=== PATIENT | female | born 1970 | race Hispanic/Latino ===

== ENCOUNTER 2017-01-18 04:50 | Emergency (ER) | payer MEDICAID ==
[2017-01-18 05:21] VITALS: BMI 37.5
[2017-01-18 05:22] VITALS: BP 120/80; PULSE 92; RESP 20; O2SAT 100
[2017-01-18 05:37] VITALS: TEMP 98.1
--- NOTE | 2017-01-18 05:46 | ED PDOC ---
Arrival/HPI - General Chief Complaint: Shortness Of Breath Time Seen by Provider: 01/18/17 05:00 Historian: Patient - History of Present Illness Narrative History of Present Illness (Text): 01/18/17 05:40 Silvia Jennings is a 46 year old female, with a history of arthritis and anxiety, presents to the emergency department complaining of right posterior thoracic pain for past few hours. Patient states that she woke up from sleep with the symptoms and states that pain is worsened with deep inspirations.No sob .Thinks may be an anxiety attack. Denies fever, chills, headache, dizziness, nausea, vomiting, diarrhea, urinary symptoms, or any other complaints at this time. Time/Duration: 1-3 hours Symptom Onset: Sudden Symptom Course: Unchanged Severity Level: Mild Activities at Onset: Sleeping Context: Home Past Medical History - Provider Review Nursing Documentation Reviewed: Yes - Past History Past History: No Previous - Cardiac Hx Cardiac Disorders: No - Pulmonary Hx Respiratory Disorders: No - Neurological HX Cerebrovascular Accident: Yes (2011) - HEENT Hx HEENT Disorder: No - Renal Hx Renal Disorder: No - Endocrine/Metabolic Hx Endocrine Disorders: No - Hematological/Oncological Hx Blood Disorders: No - Integumentary Hx Dermatological Disorder: No - Musculoskeletal/Rheumatological Hx Arthritis: Yes - Gastrointestinal Hx Gastrointestinal Disorders: No - Genitourinary/Gynecological Hx Genitourinary Disorders: No - Psychiatric Hx Psychophysiologic Disorder: Yes Hx Anxiety: Yes Hx Depression: No Hx Emotional Abuse: No Hx Physical Abuse: No Hx Substance Use: No - Past Surgical History Past Surgical History: No Previous - Surgical History Other/Comment: lap band 2010 - Anesthesia Hx Anesthesia: Yes Hx Anesthesia Reactions: No Hx Malignant Hyperthermia: No - Suicidal Assessment Feels Threatened In Home Enviroment: No Family/Social History - Physician Review Nursing Documentation Reviewed: Yes Family/Social History: No Known Family HX Smoking Status: Never Smoked Hx Alcohol Use: No Hx Substance Use: No Hx Substance Use Treatment: No Allergies/Home Meds Allergies/Adverse Reactions: Allergies cat dander Allergy (Verified 01/18/17 05:24) RASH latex Allergy (Verified 01/18/17 05:24) RASH sesame seed Allergy (Verified 01/18/17 05:24) RASH Review of Systems - Physician Review All systems were reviewed & negative as marked: Yes - Review of Systems Constitutional: Normal. absent: Fatigue, Fevers Respiratory: Normal. absent: SOB, Cough, Sputum Cardiovascular: Normal. absent: Chest Pain Gastrointestinal: Normal. absent: Abdominal Pain, Diarrhea, Nausea, Vomiting Genitourinary Female: Normal. absent: Dysuria Musculoskeletal: Other (right posterior thoracic pain ) Neurological: Normal. absent: Headache, Dizziness Psychiatric: Normal Physical Exam Vital Signs Reviewed: Yes Vital Signs Temp Pulse Resp BP Pulse Ox 01/18/17 05:48 20 100 01/18/17 05:21 92 H 20 120/80 100 01/18/17 05:06 98.1 F 77 24 120/80 98 Temperature: Afebrile Blood Pressure: Normal Pulse: Regular Respiratory Rate: Normal Appearance: Positive for: Well-Appearing, Non-Toxic, Comfortable Pain Distress: None Mental Status: Positive for: Alert and Oriented X 3 - Systems Exam Head: Present: Atraumatic, Normocephalic Pupils: Present: PERRL Extroacular Muscles: Present: EOMI Conjunctiva: Present: Normal Respiratory/Chest: Present: Clear to Auscultation, Good Air Exchange. No: Respiratory Distress, Accessory Muscle Use Cardiovascular: Present: Regular Rate and Rhythm, Normal S1, S2. No: Murmurs Abdomen: Present: Normal Bowel Sounds. No: Tenderness, Distention, Peritoneal Signs Upper Extremity: Present: Normal Inspection. No: Cyanosis, Edema Lower Extremity: Present: Normal Inspection. No: Edema Neurological: Present: GCS=15, CN II-XII Intact, Speech Normal Skin: Present: Warm, Dry, Normal Color. No: Rashes Psychiatric: Present: Alert, Oriented x 3, Normal Insight, Normal Concentration Medical Decision Making ED Course and Treatment: 01/18/17 05:48 Impression: A 46 year old female who presents to the emergency department complaining of right posterior thoracic pain for past few hours. Plan: -- EKG -- Labs, cardiac enzymes -- Chest X-ray -- HCG -- Urinalysis -- Reassess and disposition Progress Notes: 01/18/17 06:02 EKG interpreted by me: ITA @ 81. Non specific ST/T wave changes. - Lab Interpretations Lab Results: 01/18/17 05:45 01/18/17 05:45 Lab Results 01/18/17 05:45: WBC 11.4 H, RBC 4.02, Hgb 11.3 L, Hct 33.6 L, MCV 83.6, MCH 28.1 , MCHC 33.6, RDW 13.8, Plt Count 276, MPV 10.5, PT 10.9, INR 1.01, APTT 28.6, D- Dimer, Quantitative 0.39, Sodium 139, Potassium 3.9, Chloride 102, Carbon Dioxide 24, Anion Gap 17, BUN 14, Creatinine 0.6, Est GFR ( Amer) > 60, Est GFR (Non-Af Amer) > 60, Random Glucose 97, Calcium 9.1, Total Bilirubin 0.7 , AST 21, ALT 26, Alkaline Phosphatase 71, Lactate Dehydrogenase 399, Total Creatine Kinase 61, Troponin I < 0.01, Total Protein 8.1, Albumin 4.0, Globulin 4.1, Albumin/Globulin Ratio 1.0 L, Urine Color Yellow, Urine Appearance Clear, Urine pH 6.0, Ur Specific [place] >= 1.030, Urine Protein Negative, Urine Glucose (UA) Negative, Urine Ketones Negative, Urine Blood Negative, Urine Nitrate Negative, Urine Bilirubin Negative, Urine Urobilinogen 0.2, Ur Leukocyte Esterase Negative, Urine HCG, Qual Negative - RAD Interpretation Narrative RAD Interpretations (Text): 01/18/17 06:45 CXR- no acute process Radiology Orders: 01/18/17 05:25 CHEST PORTABLE [RAD] Stat Labor Service Representative: ED Physician - Medication Orders Current Medication Orders: Cyclobenzaprine HCl (Flexeril) 10 mg PO ONCE ONE Stop: 01/18/17 07:02 Discontinued Medications Ketorolac Tromethamine (Toradol) 30 mg IVP ONCE ONE Stop: 01/18/17 06:44 Last Admin: 01/18/17 06:54 Dose: 30 MG IVP Administration Document 01/18/17 06:54 JEREMY (Rec: 01/18/17 06:54 JEREMY [facility] [id number]) Charges for Administration # of IVP Administrations 1 - Scribe Statement The provider has reviewed the documentation as recorded by the Toby Beyer Provider Attestation: All medical record entries made by the Andreeaibcirilo were at my direction and personally dictated by me. I have reviewed the chart and agree that the record accurately reflects my personal performance of the history, physical exam, medical decision making, and the department course for this patient. I have also personally directed, reviewed, and agree with the discharge instructions and disposition. Disposition/Present on Arrival - Present on Arrival Any Indicators Present on Arrival: No History of DVT/PE: No History of Uncontrolled Diabetes: No Urinary Catheter: No History of Decub. Ulcer: No History Surgical Site Infection Following: None - Disposition Have Diagnosis and Disposition been Completed?: Yes Diagnosis: Musculoskeletal pain, Muscle spasm Disposition: HOME/ ROUTINE Disposition Time: 07:06 Patient Plan: Discharge Condition: GOOD Discharge Instructions (ExitCare): Musculoskeletal Pain (ED), Muscle Spasm (ED) Additional Instructions: Take meds as prescribed/follow up with your doctor this week/any recurrent worsening symptoms return to the emergency room Prescriptions: Cyclobenzaprine [Cyclobenzaprine HCl] 10 mg PO TID PRN #15 tab PRN Reason: Muscle Spasm Naproxen [Naprosyn] 500 mg PO BID PRN #14 tab PRN Reason: Pain
[2017-01-18 06:19] LABS: HEMATOCRIT 33.6 % (36.0-48.0); INR 1.01 (0.93-1.08); MEAN CELL VOLUME 83.6 fL (80.0-105.0); MEAN CORPUSCULAR HEMOGLOBIN 28.1 pg (25.0-35.0); MEAN CORPUSCULAR HGB CONC 33.6 g/dl (31.0-37.0); MEAN PLATELET VOLUME 10.5 fl (7.0-11.0); PARTIAL THROMBOPLASTIN TIME 28.6 Seconds (23.7-30.8); RED CELL DISTRIBUTION WIDTH 13.8 % (11.5-14.5); WHITE BLOOD COUNT 11.4 10^3/ul (4.5-11.0)
[2017-01-18 06:20] LABS: URINE BILIRUBIN NEGATIVE (NEGATIVE); URINE BLOOD NEGATIVE (NEGATIVE); URINE GLUCOSE (UA) NEGATIVE (NEGATIVE); URINE KETONE NEGATIVE (NEGATIVE); URINE LEUKOCYTE ESTERASE NEGATIVE Leu/uL (NEGATIVE); URINE PROTEIN NEGATIVE mg/dL (<30 mg/dL); URINE UROBILINOGEN 0.2 E.U./dL (<1 E.U./dL)
[2017-01-18 06:25] LABS: URINE APPEARANCE CLEAR (CLEAR); URINE COLOR YELLOW (YELLOW)
[2017-01-18 06:31] LABS: ALKALINE PHOSPHATASE 71 U/L (38-133); ALT/SGPT 26 U/L (7-56); AST/SGOT 21 U/L (15-39); BILIRUBIN,TOTAL 0.7 mg/dL (0.2-1.3); BLOOD UREA NITROGEN 14 mg/dL (7-21); CALCIUM 9.1 mg/dL (8.4-10.5); CARBON DIOXIDE 24 mmol/L (21-33); CHLORIDE 102 mmol/L (98-107); GFR AFRICAN-AMERICAN > 60; GLUCOSE,RANDOM 97 mg/dL (70-110); POTASSIUM 3.9 mmol/L (3.6-5.0); SODIUM 139 mmol/L (132-148); TOTAL PROTEIN 8.1 g/dL (5.8-8.3)
[2017-01-18 06:43] LABS: TROPONIN I < 0.01 ng/mL
--- NOTE | 2017-01-18 09:04 | RAD ---
HISTORY: Chest pain COMPARISON: 10/08/2012 FINDINGS: LUNGS: The lungs are clear. PLEURA: No significant pleural effusion identified, no pneumothorax apparent. CARDIOVASCULAR: Normal. OSSEOUS STRUCTURES: No significant abnormalities. VISUALIZED UPPER ABDOMEN: Normal. OTHER FINDINGS: None. IMPRESSION: No active pulmonary disease.
--- NOTE | 2017-01-18 09:38 | CARD ---
APPROVED REPORT EKG Measurement Heart [id number] <Conclusion> Normal sinus rhythm Small q waves 2,3,F PWNL
== END 2017-01-18 07:15 | disposition home or self-care (01) ==
LOC: ED 04:50
DX: M79.1 Myalgia (principal)
CPT/HCPCS: 71010; 80053; 81003; 82550; 83615; 84484; 84703; 85027; 85378; 85610; 85730; 93005; 96374; 99284; J1885

== ENCOUNTER 2017-03-14 03:49 | Emergency (ER) | payer MEDICAID ==
[2017-03-14 03:59] VITALS: BP 132/94; PULSE 97; RESP 18; TEMP 99.4; O2SAT 97
[2017-03-14 04:00] VITALS: BMI 40.7
[2017-03-14] MEDS ORDERED: Albuterol 0.083% Inhal Sol (2.5 mg/3 mL) UD IH STA (04:23)
--- NOTE | 2017-03-14 04:28 | ED PDOC ---
Arrival/HPI <ToanChi - Last Filed: 03/14/17 06:23> - General Historian: Patient <Tamela Mcdaniel - Last Filed: 03/14/17 06:27> - General Chief Complaint: Cough, Cold, Congestion Time Seen by Provider: 03/14/17 04:00 - History of Present Illness Narrative History of Present Illness (Text): 03/14/17 04:24 46 y/o F w/ PMHx of bronchitis and PNA presents to the ED w/ c/o chest congestion and myalgias x1wk. Pt states she saw her PMD and was prescribed Azithromycin. Pt is on day 4 of 5 and reports worsening cough and myalgias. Pt admits to F/C, lightheadedness, cough productive of thick green/yellow sputum. Pt admits to worsening SOB w/ exertion and orthopnea as well as CP w/ inhalation. Pt had 1 episode of vomiting this evening after coughing fit. Pt denies nausea, D/C, abd pain. Pt has not taken any meds except the abx prescribed. (Tamela Mcdaniel) Past Medical History - Provider Review Nursing Documentation Reviewed: Yes - Past History Past History: No Previous - Infectious Disease Hx of Infectious Diseases: None - Reproductive Menopause: No - Cardiac Hx Cardiac Disorders: No - Pulmonary Hx Respiratory Disorders: No - Neurological HX Cerebrovascular Accident: Yes (2011) - HEENT Hx HEENT Disorder: No - Renal Hx Renal Disorder: No - Endocrine/Metabolic Hx Endocrine Disorders: No - Hematological/Oncological Hx Blood Disorders: No - Integumentary Hx Dermatological Disorder: No - Musculoskeletal/Rheumatological Hx Arthritis: Yes - Gastrointestinal Hx Gastrointestinal Disorders: No - Genitourinary/Gynecological Hx Genitourinary Disorders: No - Psychiatric Hx Psychophysiologic Disorder: Yes Hx Anxiety: Yes Hx Depression: No Hx Emotional Abuse: No Hx Physical Abuse: No Hx Substance Use: No - Past Surgical History Past Surgical History: No Previous - Surgical History Other/Comment: lap band 2009 - Anesthesia Hx Anesthesia: Yes Hx Anesthesia Reactions: No Hx Malignant Hyperthermia: No - Suicidal Assessment Feels Threatened In Home Enviroment: No <Tamela Mcdaniel - Last Filed: 03/14/17 06:27> Family/Social History - Physician Review Nursing Documentation Reviewed: Yes Family/Social History: No Known Family HX Smoking Status: Never Smoked Hx Alcohol Use: No Hx Substance Use: No Hx Substance Use Treatment: No <Brandy Mcdanielanda - Last Filed: 03/14/17 06:27> Allergies/Home Meds <Chi Joya - Last Filed: 03/14/17 06:23> <Tamela Mcdaniel - Last Filed: 03/14/17 06:27> Allergies/Adverse Reactions: Allergies cat dander Allergy (Verified 01/18/17 05:24) RASH latex Allergy (Verified 01/18/17 05:24) RASH sesame seed Allergy (Verified 01/18/17 05:24) RASH Review of Systems - Physician Review All systems were reviewed & negative as marked: Yes - Review of Systems ENT: absent: Rhinorrhea Cardiovascular: absent: Edema <Tamela Mcdaniel - Last Filed: 03/14/17 06:27> Physical Exam Vital Signs Reviewed: Yes Temperature: Afebrile Blood Pressure: Normal Pulse: Regular Respiratory Rate: Normal Appearance: Positive for: Comfortable, Ill-Appearing Pain Distress: None Mental Status: Positive for: Alert and Oriented X 3 - Systems Exam Head: Present: Atraumatic, Normocephalic Pupils: Present: PERRL Extroacular Muscles: Present: EOMI Conjunctiva: Present: Normal Mouth: Present: Moist Mucous Membranes Pharnyx: Present: ERYTHEMA Nose (External): Present: Atraumatic Nose (Internal): Present: Boggy Respiratory/Chest: Present: Good Air Exchange, Wheezes (L basilar). No: Respiratory Distress, Accessory Muscle Use Cardiovascular: Present: Normal S1, S2, Tachycardic. No: Murmurs Abdomen: No: Tenderness, Distention Upper Extremity: Present: Normal Inspection Lower Extremity: Present: Normal Inspection Neurological: Present: GCS=15, Speech Normal Skin: Present: Warm, Dry, Normal Color Lymphatic: Present: Cervical Adenopathy (anterior shotty lymphadenopathy) Psychiatric: Present: Alert, Oriented x 3, Normal Affect, Normal Mood <Tamela Mcdaniel - Last Filed: 03/14/17 06:27> Vital Signs Temp Pulse Resp BP Pulse Ox 03/14/17 03:49 99.4 F 97 H 18 132/94 H 97 Medical Decision Making <Chi Joya - Last Filed: 03/14/17 06:23> <Tamela Mcdaniel - Last Filed: 03/14/17 06:27> ED Course and Treatment: Pt seen and evaluated with resident. Pt, whose pasrt medical histroy includes bronchitis, presented for chest congestino with associated productive cough, dyspnea on exertion, and diffuse body aches for 1 week. Aware and agree with HPI , clinical findings, plan, and management. Plan: -- EKG -- Chest X-ray -- Albuterol -- Reassess and disposition (Chi Joya) 03/14/17 04:31 46 y/o F w/ SOB and productive cough - CXR - Albuterol - reassess and dispo 03/14/17 06:15 symptoms improved after nebulizer Tx. (Tamela Mcdaniel) - RAD Interpretation Narrative RAD Interpretations (Text): 03/14/17 06:25 CXR: no active disease (Tamela Mcdaniel) Radiology Orders: 03/14/17 04:23 CHEST TWO VIEWS (PA/LAT) [RAD] Stat - Medication Orders Current Medication Orders: Discontinued Medications Albuterol Sulfate (Albuterol 0.083% Inhal Uma (2.5 Mg/3 Ml) Ud) 2.5 mg IH STAT STA Stop: 03/14/17 04:24 Last Admin: 03/14/17 04:33 Dose: 2.5 mg - PA / STRAIGHTENING MACHINE FEEDER / Resident Statement TOMASA has reviewed & agrees with the documentation as recorded. TOMASA has examined the patient and agrees with the treatment plan. <Chi Joya - Last Filed: 03/14/17 06:23> Disposition/Present on Arrival <Chi Joya - Last Filed: 03/14/17 06:23> - Present on Arrival Any Indicators Present on Arrival: No History of DVT/PE: No History of Uncontrolled Diabetes: No Urinary Catheter: No History of Decub. Ulcer: No History Surgical Site Infection Following: None - Disposition Have Diagnosis and Disposition been Completed?: Yes Disposition Time: 06:25 <Tamela Mcdaniel - Last Filed: 03/14/17 06:27> - Disposition Diagnosis: Bronchitis Disposition: HOME/ ROUTINE Condition: GOOD Discharge Instructions (ExitCare): Acute Bronchitis (ED) Additional Instructions: follow up with primary physician within 1 week return if symptoms do not improve or worsen take all medications as prescribed Prescriptions: Albuterol HFA [Ventolin HFA 90 mcg/actuation (8 g)] 1 puff IH Q4 #1 inhaler levoFLOXacin [Levaquin] 500 mg PO DAILY #7 tab
--- NOTE | 2017-03-14 09:06 | RAD ---
HISTORY: Shortness of breath, productive cough COMPARISON: No prior. TECHNIQUE: Chest PA and lateral FINDINGS: LUNGS: The lungs are clear. PLEURA: No significant pleural effusion identified. No pneumothorax apparent. CARDIOVASCULAR: Normal. OSSEOUS STRUCTURES: No significant abnormalities. VISUALIZED UPPER ABDOMEN: Normal. OTHER FINDINGS: None. IMPRESSION: No active pulmonary disease.
--- NOTE | 2017-03-14 14:53 | CARD ---
APPROVED REPORT EKG Measurement Heart [id number] <Conclusion> Normal sinus rhythm Small q waves 2,3,F, possible IMI, age unknown
== END 2017-03-14 06:51 | disposition home or self-care (01) ==
LOC: ED 03:49
DX: J20.9 Acute bronchitis, unspecified (principal)

== ENCOUNTER 2018-04-07 18:22 | Emergency (ER) | payer MEDICAID ==
[2018-04-07 18:53] VITALS: BP 129/86; TEMP 98.8; BMI 43.4
[2018-04-07] MEDS ORDERED: Lidocaine 1%/Epinephrine 1:100000 30 ml vial IJ ONE (19:17)
[2018-04-07] MEDS ORDERED: LIDOCAIN/EPI 1-0.001% 10ML INJ SOL IJ STA (19:17)
[2018-04-07] MEDS ORDERED: LIDOCAIN/EPI 1-0.001% 10ML INJ SOL IJ ONE (19:19)
--- NOTE | 2018-04-07 19:50 | ED PDOC ---
Arrival/HPI - General Chief Complaint: Abnormal Labs Time Seen by Provider: 04/07/18 19:13 Historian: Patient - History of Present Illness Narrative History of Present Illness (Text): 04/07/18 19:40 47 year old female, with no significant PMH, who presents to the emergency department complaining of painful lump in back of neck since 4 days that has been increasing in size. Patient denies fever, trauma, neurological symptoms, abdominal pain, nausea, vomiting, diarrhea, chest pain, shortness of breath or other complaints. Time/Duration: < week Symptom Onset: Gradual Symptom Course: Worsening Past Medical History - Provider Review Nursing Documentation Reviewed: Yes - Past History Past History: No Previous - Infectious Disease Hx of Infectious Diseases: None - Cardiac Hx Cardiac Disorders: No - Pulmonary Hx Respiratory Disorders: No - Neurological HX Cerebrovascular Accident: Yes (2011) - HEENT Hx HEENT Disorder: No - Renal Hx Renal Disorder: No - Endocrine/Metabolic Hx Endocrine Disorders: No - Hematological/Oncological Hx Blood Disorders: No - Integumentary Hx Dermatological Disorder: No - Musculoskeletal/Rheumatological Hx Arthritis: Yes - Gastrointestinal Hx Gastrointestinal Disorders: No - Genitourinary/Gynecological Hx Genitourinary Disorders: No - Psychiatric Hx Psychophysiologic Disorder: Yes Hx Anxiety: Yes Hx Depression: No Hx Emotional Abuse: No Hx Physical Abuse: No Hx Substance Use: No - Past Surgical History Past Surgical History: No Previous - Surgical History Other/Comment: lap band 2010 - Anesthesia Hx Anesthesia: Yes Hx Anesthesia Reactions: No Hx Malignant Hyperthermia: No - Suicidal Assessment Feels Threatened In Home Enviroment: No Family/Social History - Physician Review Nursing Documentation Reviewed: Yes Family/Social History: Unknown Family HX Smoking Status: Never Smoked Hx Alcohol Use: No Hx Substance Use: No Hx Substance Use Treatment: No Allergies/Home Meds Allergies/Adverse Reactions: Allergies cat dander Allergy (Verified 01/18/17 05:24) RASH latex Allergy (Verified 01/18/17 05:24) RASH sesame seed Allergy (Verified 01/18/17 05:24) RASH Review of Systems - Review of Systems Constitutional: absent: Fevers Respiratory: absent: SOB Cardiovascular: absent: Chest Pain Gastrointestinal: absent: Abdominal Pain, Vomiting Genitourinary Female: absent: Dysuria Musculoskeletal: absent: Back Pain Skin: Abscess (back of neck ) Neurological: absent: Headache Endocrine: absent: Diaphoresis Physical Exam Vital Signs Reviewed: Yes Vital Signs Temp Pulse Resp BP Pulse Ox 04/07/18 21:12 82 16 99 04/07/18 18:52 98.8 F 92 H 18 129/86 100 Temperature: Afebrile Blood Pressure: Normal Pulse: Tachycardic Respiratory Rate: Normal Appearance: Positive for: Well-Appearing, Non-Toxic, Comfortable Pain Distress: None Mental Status: Positive for: Alert and Oriented X 3 - Systems Exam Head: Present: Atraumatic, Normocephalic Pupils: Present: PERRL Extroacular Muscles: Present: EOMI Conjunctiva: Present: Normal Neck: Present: Normal Range of Motion. No: Paraspinal Tenderness, Lymphadenopathy Respiratory/Chest: Present: Clear to Auscultation, Good Air Exchange. No: Respiratory Distress, Accessory Muscle Use, Wheezes, Decreased Breath Sounds, Rales, Rhonchi Cardiovascular: Present: Regular Rate and Rhythm, Normal S1, S2. No: Murmurs Abdomen: Present: Normal Bowel Sounds. No: Tenderness, Distention, Peritoneal Signs, Rebound, Guarding Neurological: Present: GCS=15, CN II-XII Intact, Speech Normal Skin: Present: Warm, Dry, Normal Color, Abscess (on the nape of neck has a 2x2 cm fluctuant painful area to midline posterior below occipital that is tender to palpation ). No: Rashes Psychiatric: Present: Alert, Oriented x 3, Normal Insight, Normal Concentration Medical Decision Making ED Course and Treatment: 04/07/18 Impression: 47 year old female, who on the nape of neck has a 2x2 cm fluctuant painful area to midline posterior below occipital that is tender to palpation. Differential Diagnosis included but are not limited to: skin abscess Plan: -- Doryx and Lidocaine and epinephrine -- Reassess and disposition Progress Notes: Procedure: Incision & Drainage Performed by the emergency provider Gunjan Hetlon Indication: Abscess Location: nape of neck Preparation: The area was prepped and draped in the usual sterile fashion and was cleansed. Local infiltration of Lidocaine with Epinephrine was used for anesthesia. Procedure: The most fluctuant portion of the abscess was incised with a #11 scalpel. Approximately 4 cc of purulent was obtained. The abscess was packed with sterile gauze and dressing was placed. Post-Procedure: On exam the abscess is notably less fluctuant. The patient tolerated the procedure well, and there were no complications. Cultured: YES Patient was instructed to return in 2 days for packing and removal. - Medication Orders Current Medication Orders: Discontinued Medications Doxycycline Hyclate (Doryx) 100 mg PO STAT STA PRN Reason: Protocol Stop: 04/07/18 19:37 Last Admin: 04/07/18 20:01 Dose: 100 mg Disposition/Present on Arrival - Present on Arrival Any Indicators Present on Arrival: No History of DVT/PE: No History of Uncontrolled Diabetes: No Urinary Catheter: No History of Decub. Ulcer: No History Surgical Site Infection Following: None - Disposition Have Diagnosis and Disposition been Completed?: Yes Diagnosis: Skin abscess Disposition: HOME/ ROUTINE Disposition Time: 00:12 Patient Plan: Discharge Condition: GOOD Discharge Instructions (ExitCare): Skin Abscess Print Language: SRI LANKAN Additional Instructions: take abiotics as prescribed,return to ED in 2 days for packing removal,wound check Prescriptions: Doxycycline Hyclate 100 mg PO BID #10 capsule oxyCODONE/Acetaminophen [Percocet 5/325 mg Tab] 1 ea PO TID PRN #6 tab PRN Reason: Pain, Mild (1-3) Referrals: [facility] [place] [Outside] - Follow up with primary Forms: [employer] (French)
[2018-04-07 21:13] VITALS: PULSE 82; RESP 16; O2SAT 99
== END 2018-04-07 21:12 | disposition home or self-care (01) ==
LOC: ED 18:22
DX: L02.11 Cutaneous abscess of neck (principal)

== ENCOUNTER 2018-04-09 11:47 | Emergency (ER) | payer MEDICAID ==
[2018-04-09 11:48] VITALS: BMI 43.4
[2018-04-09 12:01] VITALS: RESP 18; TEMP 98.5
[2018-04-09 12:53] VITALS: BP 126/78; PULSE 68; O2SAT 98
--- NOTE | 2018-04-16 00:38 | ED PDOC ---
Arrival/HPI - General Chief Complaint: Wound Check Time Seen by Provider: 04/09/18 11:49 - History of Present Illness Narrative History of Present Illness (Text): 04/16/18 00:37 47 yo female, presents for eval for neck abscess packing removal. i and d 2 days ago. symptoms improving. on antibiotics Past Medical History - Past History Past History: No Previous - Infectious Disease Hx of Infectious Diseases: None - Reproductive Menopause: No - Cardiac Hx Cardiac Disorders: No - Pulmonary Hx Respiratory Disorders: No - Neurological HX Cerebrovascular Accident: Yes (2011) - HEENT Hx HEENT Disorder: No - Renal Hx Renal Disorder: No - Endocrine/Metabolic Hx Endocrine Disorders: No - Hematological/Oncological Hx Blood Disorders: No - Integumentary Hx Dermatological Disorder: No - Musculoskeletal/Rheumatological Hx Arthritis: Yes - Gastrointestinal Hx Gastrointestinal Disorders: No - Genitourinary/Gynecological Hx Genitourinary Disorders: No - Psychiatric Hx Psychophysiologic Disorder: Yes Hx Anxiety: Yes Hx Depression: No Hx Emotional Abuse: No Hx Physical Abuse: No Hx Substance Use: No - Past Surgical History Past Surgical History: No Previous - Surgical History Other/Comment: lap band 2010 - Anesthesia Hx Anesthesia: Yes Hx Anesthesia Reactions: No Hx Malignant Hyperthermia: No - Suicidal Assessment Feels Threatened In Home Enviroment: No Family/Social History - Physician Review Nursing Documentation Reviewed: Yes Family/Social History: Unknown Family HX Smoking Status: Never Smoked Hx Alcohol Use: No Hx Substance Use: No Hx Substance Use Treatment: No Allergies/Home Meds Allergies/Adverse Reactions: Allergies cat dander Allergy (Verified 04/09/18 12:01) RASH latex Allergy (Verified 04/09/18 12:01) RASH sesame seed Allergy (Verified 04/09/18 12:01) RASH Review of Systems - Review of Systems Constitutional: Normal Eyes: Normal ENT: Normal Respiratory: Normal Cardiovascular: Normal Gastrointestinal: Normal Genitourinary Female: Normal Musculoskeletal: Normal Skin: Normal Neurological: Normal Endocrine: Normal Hemo/Lymphatic: Normal Psychiatric: Normal Physical Exam Vital Signs Temp Pulse Resp BP Pulse Ox 04/09/18 12:52 68 18 126/78 98 04/09/18 11:57 98.5 F 84 18 114/67 97 Temperature: Afebrile Blood Pressure: Normal Pulse: Regular Respiratory Rate: Normal Appearance: Positive for: Well-Appearing, Non-Toxic, Comfortable Pain Distress: None Mental Status: Positive for: Alert and Oriented X 3 - Systems Exam Head: Present: Atraumatic, Normocephalic Pupils: Present: PERRL Extroacular Muscles: Present: EOMI Conjunctiva: Present: Normal Mouth: Present: Moist Mucous Membranes Neck: Present: Normal Range of Motion, Other (postterior neck abscess minimal induration no erythema, no purulent dc) Respiratory/Chest: Present: Clear to Auscultation, Good Air Exchange. No: Respiratory Distress, Accessory Muscle Use Cardiovascular: Present: Regular Rate and Rhythm, Normal S1, S2. No: Murmurs Abdomen: No: Tenderness, Distention, Peritoneal Signs Back: Present: Normal Inspection Upper Extremity: Present: Normal Inspection. No: Cyanosis, Edema Lower Extremity: Present: Normal Inspection. No: Edema Neurological: Present: GCS=15, CN II-XII Intact, Speech Normal Skin: Present: Warm, Dry, Normal Color. No: Rashes Psychiatric: Present: Alert, Oriented x 3, Normal Insight, Normal Concentration Medical Decision Making ED Course and Treatment: 04/16/18 00:38 case seen with er resident. irrigated and packing removed. no further drainage. Disposition/Present on Arrival - Present on Arrival Any Indicators Present on Arrival: No History of DVT/PE: No History of Uncontrolled Diabetes: No Urinary Catheter: No History of Decub. Ulcer: No History Surgical Site Infection Following: None - Disposition Have Diagnosis and Disposition been Completed?: Yes Diagnosis: Visit for wound check Disposition: HOME/ ROUTINE Disposition Time: 12:00 Condition: STABLE Additional Instructions: Please follow up with PMD (Dr. Nicholsno) within 1 week for re-check of site. Please finish complete course of antibiotic. After resuming normal bathing, keep abscess site dry (pat dry with towel). CY DUNCAN, thank you for letting us take care of you today. Your provider was Tenzin Garcia DO and you were treated for WOUND CHECK OF NECK. The emergency medical care you received today was directed at your acute symptoms. If you were prescribed any medication, please fill it and take as directed. It may take several days for your symptoms to resolve. Return to the Emergency Department if your symptoms worsen, do not improve, or if you have any other problems. Please contact your doctor or call one of the physicians/clinics you have been referred to that are listed on the Patient Visit Information form that is included in your discharge packet. Bring any paperwork you were given at discharge with you along with any medications you are taking to your follow up visit. Our treatment cannot replace ongoing medical care by a primary care provider outside of the emergency department. Thank you for allowing the [facility] team to be part of your care today. If you had an X-Ray or CT scan: A Radiologist will review the ED reading if any change in treatment is needed we will contact you. If you had a blood, urine, or wound culture: It will take several days for the results, if any change in treatment is needed we will contact you. If you had an STI test: It will take 48 hours for the results. Please call after 1 week if you have not heard back. Referrals: Nory Nicholson V, DO [Family Provider] - Follow up with primary Forms: [facility] (Tajik)
== END 2018-04-09 12:52 | disposition home or self-care (01) ==
LOC: ED 11:47
DX: Z48.89 Encounter for other specified surgical aftercare (principal)

== ENCOUNTER 2018-11-14 20:09 | Emergency (ER) | payer MEDICAID ==
[2018-11-14 20:09] VITALS: BMI 43.4
[2018-11-14 20:38] VITALS: TEMP 99.5
[2018-11-14] MEDS ORDERED: Oxycodone/Acetaminophen 5/325 mg Tab PO STA (21:27)
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
[2018-11-14 23:33] VITALS: BP 147/73; PULSE 80; RESP 17; O2SAT 100
--- NOTE | 2018-11-15 09:27 | CT ---
Date of service: 11/14/2018 PROCEDURE: CT HEAD WITHOUT CONTRAST. HISTORY: injury COMPARISON: None available. TECHNIQUE: Axial computed tomography images were obtained through the head/brain without intravenous contrast. Radiation dose: Total exam DLP = 898.7 mGy-cm. This CT exam was performed using one or more of the following dose reduction techniques: Automated exposure control, adjustment of the mA and/or kV according to patient size, and/or use of iterative reconstruction technique. FINDINGS: HEMORRHAGE: No intracranial hemorrhage. BRAIN: No mass effect or edema. No atrophy or chronic microvascular ischemic changes. VENTRICLES: Unremarkable. No hydrocephalus. CALVARIUM: Unremarkable. PARANASAL SINUSES: Unremarkable as visualized. No significant inflammatory changes. MASTOID AIR CELLS: Unremarkable as visualized. No inflammatory changes. OTHER FINDINGS: The report concurs with the preliminary [facility] report IMPRESSION: No acute findings
--- NOTE | 2018-11-15 09:30 | CT ---
Date of service: 11/14/2018 PROCEDURE: CT Cervical Spine without contrast HISTORY: injury COMPARISON: None available. TECHNIQUE: Axial computed tomography images were obtained of the cervical spine without the use of intravenous contrast. Coronal and sagittal reformatted images were created and reviewed. Radiation dose: Total exam DLP = 590.6 mGy-cm. This CT exam was performed using one or more of the following dose reduction techniques: Automated exposure control, adjustment of the mA and/or kV according to patient size, and/or use of iterative reconstruction technique. FINDINGS: VERTEBRAE: No fracture. Normal alignment. No destructive bony lesion. DISCS/SPINAL CANAL/NEURAL FORAMINA: No significant central canal or neural foraminal stenosis. Discs heights are grossly preserved. PARASPINAL SOFT TISSUES: The right lobe of the thyroid is enlarged. OTHER FINDINGS: The report concurs with the preliminary [facility] report IMPRESSION: Unremarkable CT of the cervical spine.
== END 2018-11-14 23:32 | disposition home or self-care (01) ==
LOC: ED 20:09
DX: S09.90XA Unspecified injury of head, initial encounter (principal); S16.1XXA Strain of muscle, fascia and tendon at neck level, initial encounter; Y04.0XXA Assault by unarmed brawl or fight, initial encounter; M62.838 Other muscle spasm; Z86.73 Personal history of transient ischemic attack (TIA), and cerebral infarction without residual deficits

== ENCOUNTER 2019-01-27 21:12 | Emergency (ER) | payer MEDICAID ==
[2019-01-27 21:47] VITALS: RESP 18; BMI 41.9
--- NOTE | 2019-01-27 22:14 | ED PDOC ---
Arrival/HPI <Chi Joya - Last Filed: 01/27/19 23:08> - General Historian: Patient - History of Present Illness Narrative History of Present Illness (Text): 01/27/19 22:10 Patient is a 48yo F with no significant PMH presenting to the ED with R sided abdominal pain for 3 days. She said it began abruptly when straining during a bowel movement. She reports a pressure like pain on the R side that is worse with laying on her R side. She rates the pain 9/10. She tried taking advil at home with no relief. She denies prior history of this pain. She denies fever, chills, chest pain, shortness of breath, nausea, vomiting, diarrhea, constipation, blood in the urine or stool. Her LMP was 12/24. Time/Duration: < week Symptom Onset: Sudden Symptom Course: Unchanged Quality: Pressure Severity Level: 9 <Rolando Castaneda - Last Filed: 01/28/19 02:44> - General Chief Complaint: Abdominal Pain Time Seen by Provider: 01/27/19 21:41 Past Medical History - Past History Past History: No Previous - Infectious Disease Hx of Infectious Diseases: None - Cardiac Hx Cardiac Disorders: No - Pulmonary Hx Respiratory Disorders: No - Neurological Hx Neurological Disorder: Yes HX Cerebrovascular Accident: Yes (2011) - HEENT Hx HEENT Disorder: No - Renal Hx Renal Disorder: No - Endocrine/Metabolic Hx Endocrine Disorders: No - Hematological/Oncological Hx Blood Disorders: No - Integumentary Hx Dermatological Disorder: No - Musculoskeletal/Rheumatological Hx Arthritis: Yes - Gastrointestinal Hx Gastrointestinal Disorders: No - Genitourinary/Gynecological Hx Genitourinary Disorders: No - Psychiatric Hx Psychophysiologic Disorder: Yes Hx Anxiety: Yes Hx Depression: No Hx Emotional Abuse: No Hx Physical Abuse: No Hx Substance Use: No - Past Surgical History Past Surgical History: No Previous - Surgical History Other/Comment: lap band 2010 - Anesthesia Hx Anesthesia: Yes Hx Anesthesia Reactions: No Hx Malignant Hyperthermia: No - Suicidal Assessment Feels Threatened In Home Enviroment: No <Rolando Castaneda - Last Filed: 01/28/19 02:44> Family/Social History Family/Social History: No Known Family HX Smoking Status: Never Smoked Hx Alcohol Use: No Hx Substance Use: No Hx Substance Use Treatment: No <Rolando Castaneda - Last Filed: 01/28/19 02:44> Allergies/Home Meds <Chi Joya - Last Filed: 01/27/19 23:08> <Rolando Castaneda - Last Filed: 01/28/19 02:44> Allergies/Adverse Reactions: Allergies banana Allergy (Verified 01/27/19 21:47) RASH cat dander Allergy (Verified 01/27/19 21:47) RASH latex Allergy (Verified 01/27/19 21:47) RASH poppyseed oil Allergy (Verified 01/27/19 21:47) RASH ragweed pollen Allergy (Verified 01/27/19 21:47) RASH sesame seed Allergy (Verified 01/27/19 21:47) RASH yogurt Allergy (Uncoded 01/27/19 21:47) RASH Review of Systems - Review of Systems Constitutional: Normal. absent: Fatigue Eyes: Normal ENT: Normal Respiratory: Normal. absent: SOB Cardiovascular: Normal. absent: Chest Pain Gastrointestinal: Abdominal Pain. absent: Stool Changes, Constipation, Diarrhea, Nausea, Vomiting, Hematochezia, Hematemesis Genitourinary Female: Normal. absent: Dysuria, Hematuria Musculoskeletal: Back Pain Skin: Normal Neurological: Normal Endocrine: Normal Hemo/Lymphatic: Normal Psychiatric: Normal <Rolando Castaneda - Last Filed: 01/28/19 02:44> Physical Exam Vital Signs Temp Pulse Resp BP Pulse Ox 01/27/19 21:47 98.9 F 78 18 127/61 98 <Chi Joya - Last Filed: 01/27/19 23:08> Vital Signs Reviewed: Yes Vital Signs Temp Pulse Resp BP Pulse Ox 01/27/19 21:47 98.9 F 78 18 127/61 98 Temperature: Afebrile Blood Pressure: Normal Pulse: Regular Respiratory Rate: Normal Appearance: Positive for: Well-Appearing, Non-Toxic, Comfortable Pain Distress: None Mental Status: Positive for: Alert and Oriented X 3 - Systems Exam Head: Present: Atraumatic, Normocephalic Pupils: Present: PERRL Extroacular Muscles: Present: EOMI Conjunctiva: Present: Normal Mouth: Present: Moist Mucous Membranes Neck: Present: Normal Range of Motion. No: MIDLINE TENDERNESS Respiratory/Chest: Present: Clear to Auscultation, Good Air Exchange. No: Respiratory Distress, Accessory Muscle Use Cardiovascular: Present: Regular Rate and Rhythm, Normal S1, S2. No: Murmurs Abdomen: Present: Normal Bowel Sounds, Other (negative Adair's sign. no suprapubic tenderness. ). No: Tenderness, Distention, Peritoneal Signs Back: Present: Other (tenderness to palpation of right side T7-T10). No: CVA Tenderness, Midline Tenderness Upper Extremity: Present: Normal Inspection, Normal ROM. No: Cyanosis, Edema Lower Extremity: Present: Normal Inspection. No: Edema Neurological: Present: GCS=15, CN II-XII Intact, Speech Normal, Motor Func Grossly Intact Skin: Present: Warm, Normal Color. No: Dry, Rashes Psychiatric: Present: Alert, Oriented x 3, Normal Insight, Normal Concentration <oRlando Castaneda - Last Filed: 01/28/19 02:44> Medical Decision Making ED Course and Treatment: Impression: Pt seen and evalauted with medical field representative. Aware and agree with HPI, clinical findings, plan, and management. Pt, with no significant past medical history, p resented for right-sided abdominal pain. Plan: -- CT Abdomen and Pelvis -- Labs, lipase -- Urinalysis -- Toradol -- Reassess and disposition Progress Notes: - Medication Orders Current Medication Orders: Discontinued Medications Ketorolac Tromethamine (Toradol) 30 mg IVP STAT STA Stop: 01/27/19 22:14 <Chi Joya - Last Filed: 01/27/19 23:08> ED Course and Treatment: 01/27/19 22:16 CBC CMP POC UA Toradol and reassess CT abd/pel 01/27/19 23:45 Patient refused Toradol 01/28/19 02:43 CT showing possible small kidney stones. DC with instructions to follow up with primary <Rolando Castaneda - Last Filed: 01/28/19 02:44> - PA / [employer] / Resident Statement TOMASA has reviewed & agrees with the documentation as recorded. TOMASA has examined the patient and agrees with the treatment plan. <Chi Joya - Last Filed: 01/27/19 23:08> Disposition/Present on Arrival <Chi Joya - Last Filed: 01/27/19 23:08> - Present on Arrival Any Indicators Present on Arrival: No History of DVT/PE: No History of Uncontrolled Diabetes: No Urinary Catheter: No History of Decub. Ulcer: No History Surgical Site Infection Following: None - Disposition Have Diagnosis and Disposition been Completed?: Yes Disposition Time: 02:43 <Rolando Castaneda - Last Filed: 01/28/19 02:44> - Disposition Diagnosis: Nephrolithiasis Disposition: HOME/ ROUTINE Condition: IMPROVED Discharge Instructions (ExitCare): Kidney Stones (DC) Additional Instructions: Please follow up with your primary care physician within 1 week. Drink plenty of water. Take ibuprofen or tylenol as needed for pain. If symptoms worsen, return to the ED. Referrals: Nory Nicholson DO [Primary Care Provider] - Follow up with primary Forms: [employer] ([place])
[2019-01-27 23:42] LABS: PH,URINE 6.5 (4.7-8.0); URINE BILIRUBIN NEGATIVE (NEGATIVE); URINE BLOOD NEGATIVE (NEGATIVE); URINE GLUCOSE (UA) NEGATIVE (NEGATIVE); URINE LEUKOCYTE ESTERASE NEGATIVE Leu/uL (NEGATIVE); URINE PROTEIN NEGATIVE mg/dL (<30 mg/dL); URINE UROBILINOGEN 0.2 E.U./dL (<1 E.U./dL)
[2019-01-27 23:51] LABS: URINE APPEARANCE CLEAR (CLEAR); URINE COLOR YELLOW (YELLOW)
[2019-01-28 01:19] LABS: BASO # 0.01 K/mm3 (0.0-2.0); BASO % 0.1 % (0.0-3.0); EOS % 0.5 % (1.5-5.0); HEMOGLOBIN 12.2 g/dL (12.0-16.0); LYMPH # 3.1 (1.2-3.4); LYMPH % 36.8 % (22.0-35.0); MEAN CELL VOLUME 83.7 fl (80.0-105.0); MEAN CORPUSCULAR HEMOGLOBIN 27.5 pg (25.0-35.0); MEAN CORPUSCULAR HGB CONC 32.9 g/dl (31.0-37.0); MEAN PLATELET VOLUME 10.4 fl (7.0-11.0); MONO # 0.5 (0.1-0.6); MONO % 5.7 % (1.0-6.0); RBC 4.43 10^6/uL (3.5-6.1); RED CELL DISTRIBUTION WIDTH 14.2 % (11.5-14.5); WHITE BLOOD COUNT 8.4 10^3/uL (4.5-11.0)
[2019-01-28 01:29] LABS: ALB/GLOB RATIO 1.1 (1.1-1.8); ALBUMIN 4.2 g/dL (3.0-4.8); ALT/SGPT 10 U/L (7-56); AST/SGOT 21 U/L (14-36); BLOOD UREA NITROGEN 15 mg/dL (7-21); CALCIUM 8.8 mg/dL (8.4-10.5); GFR NON-AFRICAN AMERICAN > 60; LIPASE 48 U/L (23-300)
[2019-01-28 04:05] VITALS: BP 145/72; PULSE 74; TEMP 97.1; O2SAT 97
--- NOTE | 2019-01-28 09:46 | CT ---
Date of service: 01/28/2019 PROCEDURE: CT Abdomen and Pelvis without intravenous contrast HISTORY: abdominal pain COMPARISON: None. TECHNIQUE: Without contrast.. Contrast dose: Radiation dose: Total exam DLP = 1444.76 mGy-cm. This CT exam was performed using one or more of the following dose reduction techniques: Automated exposure control, adjustment of the mA and/or kV according to patient size, and/or use of iterative reconstruction technique. FINDINGS: LOWER THORAX: Unremarkable. LIVER: Unremarkable. No gross lesion or ductal dilatation. GALLBLADDER AND BILE DUCTS: Unremarkable. PANCREAS: Unremarkable. No gross lesion or ductal dilatation. SPLEEN: Unremarkable. ADRENALS: Unremarkable. No mass. KIDNEYS AND URETERS: Unremarkable. No hydronephrosis. No solid mass. VASCULATURE: Unremarkable. No aortic aneurysm. No aortic atherosclerotic calcification or mural plaque present. BOWEL: Unremarkable. No obstruction. No gross mural thickening. APPENDIX: Unremarkable. Normal appendix. PERITONEUM: Unremarkable. No free fluid. No free air. LYMPH NODES: Unremarkable. No enlarged lymph nodes. BLADDER: Unremarkable. REPRODUCTIVE: Unremarkable. BONES: No acute fracture. OTHER FINDINGS: The report concurs with the preliminary [facility] report IMPRESSION: Unremarkable non contrast enhanced CT of the abdomen and pelvis. No evidence of urolithiasis
== END 2019-01-28 03:05 | disposition home or self-care (01) ==
LOC: ED 21:12
DX: N20.0 Calculus of kidney (principal); Z86.73 Personal history of transient ischemic attack (TIA), and cerebral infarction without residual deficits; Z98.84 Bariatric surgery status

== ENCOUNTER 2019-02-26 16:21 | Emergency (ER) | payer MEDICAID ==
[2019-02-26 16:42] VITALS: RESP 18; TEMP 99.3; BMI 40.3
[2019-02-26] MEDS ORDERED: Lidocaine 5% Patch TD STA (16:58)
--- NOTE | 2019-02-26 17:44 | ED PDOC ---
Arrival/HPI - General Chief Complaint: Back Pain Time Seen by Provider: 02/26/19 16:23 Historian: Patient - History of Present Illness Narrative History of Present Illness (Text): 02/26/19 16:23 Patient is a 48 year old female, with no significant past medical history, who presents to the emergency department complaining of worsening right flank pain since this morning. Patient notes pain began sitting in her car. Pt admits to carrying heavy load yesterday. Patient denies tanking medications for pain. Patient was evaluated here at [facility] [place] on [place]17 and was informed of kidney stones; was discharged home with instructions to hydrate. Patient denies fevers, chills, chest pain, dysuria, hematuria, nausea, vomiting, diarrhea, or any other complaints. Time/Duration: Other (right flank pain worsening this morning) Symptom Course: Worsening Activities at Onset: Light Context: Sitting Past Medical History - Provider Review Nursing Documentation Reviewed: Yes - Past History Past History: No Previous - Infectious Disease Hx of Infectious Diseases: None - Cardiac Hx Cardiac Disorders: No - Pulmonary Hx Respiratory Disorders: No - Neurological Hx Neurological Disorder: Yes HX Cerebrovascular Accident: Yes (2011) - HEENT Hx HEENT Disorder: No - Renal Hx Renal Disorder: No - Endocrine/Metabolic Hx Endocrine Disorders: No - Hematological/Oncological Hx Blood Disorders: No - Integumentary Hx Dermatological Disorder: No - Musculoskeletal/Rheumatological Hx Musculoskeletal Disorders: Yes Hx Arthritis: Yes - Gastrointestinal Hx Gastrointestinal Disorders: No - Genitourinary/Gynecological Hx Genitourinary Disorders: No - Psychiatric Hx Psychophysiologic Disorder: Yes Hx Anxiety: Yes Hx Substance Use: No - Past Surgical History Past Surgical History: No Previous - Surgical History Other/Comment: lap band 2009 - Anesthesia Hx Anesthesia: Yes Hx Anesthesia Reactions: No Hx Malignant Hyperthermia: No - Suicidal Assessment Feels Threatened In Home Enviroment: No Family/Social History - Physician Review Nursing Documentation Reviewed: Yes Family/Social History: Unknown Family HX Smoking Status: Never Smoked Hx Alcohol Use: No Hx Substance Use: No Hx Substance Use Treatment: No Allergies/Home Meds Allergies/Adverse Reactions: Allergies banana Allergy (Verified 02/26/19 16:45) RASH cat dander Allergy (Verified 02/26/19 16:45) RASH latex Allergy (Verified 02/26/19 16:45) RASH poppyseed oil Allergy (Verified 02/26/19 16:45) RASH ragweed pollen Allergy (Verified 02/26/19 16:45) RASH sesame seed Allergy (Verified 02/26/19 16:45) RASH yogurt Allergy (Uncoded 02/26/19 16:45) RASH Review of Systems - Physician Review All systems were reviewed & negative as marked: Yes - Review of Systems Constitutional: absent: Fevers, Other (chills) Cardiovascular: absent: Chest Pain Gastrointestinal: absent: Diarrhea, Nausea, Vomiting Genitourinary Female: absent: Dysuria, Hematuria Musculoskeletal: Other (right flank pain) Physical Exam Vital Signs Reviewed: Yes Vital Signs Temp Pulse Resp BP Pulse Ox 02/26/19 16:38 99.3 F 95 H 18 127/83 96 Temperature: Afebrile Blood Pressure: Normal Pulse: Regular Respiratory Rate: Normal Appearance: Positive for: Well-Appearing, Non-Toxic, Comfortable Pain Distress: None Mental Status: Positive for: Alert and Oriented X 3 - Systems Exam Head: Present: Atraumatic, Normocephalic Pupils: Present: PERRL Extroacular Muscles: Present: EOMI Conjunctiva: Present: Normal Mouth: Present: Moist Mucous Membranes Neck: Present: Normal Range of Motion Respiratory/Chest: Present: Clear to Auscultation, Good Air Exchange. No: Respiratory Distress, Accessory Muscle Use, Wheezes, Rales Cardiovascular: Present: Regular Rate and Rhythm, Normal S1, S2. No: Murmurs, Rub, Gallop Abdomen: Present: Normal Bowel Sounds. No: Tenderness, Distention, Peritoneal Signs, Rebound, Guarding Back: Present: CVA Tenderness (right flank) Upper Extremity: Present: Normal Inspection. No: Cyanosis, Edema Lower Extremity: Present: Normal Inspection. No: Edema Neurological: Present: GCS=15, CN II-XII Intact, Speech Normal Skin: Present: Warm, Dry, Normal Color. No: Rashes Psychiatric: Present: Alert, Oriented x 3, Normal Insight, Normal Concentration Medical Decision Making ED Course and Treatment: 02/26/19 16:23 Impression: 48 year old female, with no significant past medical history, who presents to the emergency department complaining of worsening right flank pain since this morning. Plan: -- Lidoderm -- Toradol -- Valium --CT a/p -- Reassess and disposition Progress Notes: 02/26/19 18:16 Patient reports some improvement in back pain and is amenable to imaging. Patient requesting CT a/p to rule out kidney stones. 02/26/19 19:11 CT scan reviewed with no evidence of renal caliculi seen, perinephric stranding and or hydronephrosis seen. Patient updated on preliminary read, but does not want to stay for results. 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 She reports complete relief of her pain. She requests scripts. Opportunity for questions given and answered. - RAD Interpretation Radiology Orders: 02/26/19 16:58 LS SPINE WITH OBL > 18 YRS OLD [RAD] Stat - Medication Orders Current Medication Orders: Discontinued Medications Diazepam (Valium) 5 mg PO ONCE ONE; Protocol Stop: 02/26/19 16:59 Ketorolac Tromethamine (Toradol) 60 mg IM STAT STA Stop: 02/26/19 16:59 Lidocaine (Lidoderm) 1 ea TD STAT STA Stop: 02/26/19 16:59 - Scribe Statement The provider has reviewed the documentation as recorded by the Scribe Rony Calderon All medical record entries made by the Scribe were at my direction and personally dictated by me. I have reviewed the chart and agree that the record accurately reflects my personal performance of the history, physical exam, medical decision making, and the department course for this patient. I have also personally directed, reviewed, and agree with the discharge instructions and disposition. Disposition/Present on Arrival - Present on Arrival Any Indicators Present on Arrival: No History of DVT/PE: No History of Uncontrolled Diabetes: No Urinary Catheter: No History of Decub. Ulcer: No History Surgical Site Infection Following: None - Disposition Have Diagnosis and Disposition been Completed?: Yes Diagnosis: Musculoskeletal back pain Disposition: HOME/ ROUTINE Disposition Time: 19:15 Patient Plan: Discharge Patient Problems: Current Active Problems Problem Status Onset Musculoskeletal back pain Acute Condition: IMPROVED Discharge Instructions (ExitCare): Upper Back Pain (DC) Print Language: MACEDONIAN Additional Instructions: All medical record entries made by the Scribe were at my direction and personally dictated by me. I have reviewed the chart and agree that the record accurately reflects my personal performance of the history, physical exam, medical decision making, and the department course for this patient. I have also personally directed, reviewed, and agree with the discharge instructions and disposition. Please follow up with your PMD in 1 week Please return for copies of your CT scan results Please take medications as prescribed Prescriptions: Lidocaine 5% [Lidoderm] 1 ea TD Q12 #5 patch Naproxen 500 mg PO BID #10 tablet Referrals: Amanda Ryan MD [Medical Doctor] - Follow up with primary Donavon Ferrer MD [Staff Provider] - Follow up with primary Forms: [facility] (Hebrew), WORK NOTE
[2019-02-26 18:33] VITALS: BP 125/74; PULSE 86; O2SAT 98
--- NOTE | 2019-02-26 19:18 | CT ---
Date of service: 02/26/2019 PROCEDURE: CT Abdomen and Pelvis without intravenous contrast HISTORY: flank pain COMPARISON: Comparison is made with 01/28/2019 TECHNIQUE: Axial and reformatted coronal and sagittal CT images of the abdomen and pelvis were obtained without IV or oral contrast administration.. Contrast dose: 0 Radiation dose: Total exam DLP = 1063.52 mGy-cm. This CT exam was performed using one or more of the following dose reduction techniques: Automated exposure control, adjustment of the mA and/or kV according to patient size, and/or use of iterative reconstruction technique. FINDINGS: LOWER THORAX: Small hazy opacities at the left lower lobe may represent atelectasis. LIVER: Unremarkable. No gross lesion or ductal dilatation. GALLBLADDER AND BILE DUCTS: Unremarkable. PANCREAS: Unremarkable. No gross lesion or ductal dilatation. SPLEEN: Unremarkable. ADRENALS: Unremarkable. No mass. KIDNEYS AND URETERS: Unremarkable. No hydronephrosis. No solid mass. VASCULATURE: Unremarkable. No aortic aneurysm. No aortic atherosclerotic calcification or mural plaque present. BOWEL: Unremarkable. No obstruction. No gross mural thickening. Colonic diverticulosis noted in the descending and sigmoid colon without evidence of diverticulitis. APPENDIX: No evidence of appendicitis. PERITONEUM: Unremarkable. No free fluid. No free air. LYMPH NODES: Unremarkable. No enlarged lymph nodes. BLADDER: The urinary bladder is not distended. REPRODUCTIVE: Unremarkable. BONES: No acute fracture. OTHER FINDINGS: None. IMPRESSION: No evidence of nephrolithiasis or hydronephrosis. Colonic diverticulosis without evidence of diverticulitis.
== END 2019-02-26 19:50 | disposition home or self-care (01) ==
LOC: ED 16:21
DX: M54.9 Dorsalgia, unspecified (principal); Z86.73 Personal history of transient ischemic attack (TIA), and cerebral infarction without residual deficits
CPT/HCPCS: 74176; 81025; 96372; 99283; J1885